=== PATIENT | male | born 1945 | race Caucasian/White ===

== ENCOUNTER 2018-01-08 17:48 | Emergency (ER) | payer OTHER ==
[2018-01-08 18:00] VITALS: RESP 16; TEMP 97.9
--- NOTE | 2018-01-08 18:32 | EDPHY ---
H & P Time Seen by Provider: 01/08/18 18:22 HPI/ROS: CHIEF COMPLAINT: Right middle digit laceration HISTORY OF PRESENT ILLNESS: 72-year-old male history of CVA on daily Plavix, up -to-date tetanus, was using a snuff grinder and sustained accidental injury to his right middle digit at the PIP joint dorsal aspect. Able to extend against resistance with no deficits. Occurred shortly prior to arrival. Was accidental. PHYSICAL EXAM (Prior to examination, patient consented to physical exam, hands were washed and my usual and customary physical exam procedures followed) 1) GENERAL: Well-developed, well-nourished, alert and oriented. Appears to be in no acute distress. 2) HEAD: Normocephalic 3) HEENT: sclera anicteric 4) LUNGS: Breathing comfortably. 5) SKIN: Right middle digit dorsal aspect PIP joint 3 cm irregular laceration. 6) MUSCULOSKELETAL: Able to hold extension at the MCP PIP D IP against resistance with no deficits. He is noted to have an extensor tendon laceration on exam. 7) NEUROLOGIC: Full sensation two-point discrimination intact distally. Smoking Status: Former smoker Constitutional: Initial Vital Signs Temperature (C) 36.6 C 01/08/18 17:57 Heart Rate 75 01/08/18 17:57 Respiratory Rate 16 01/08/18 17:57 Blood Pressure 129/71 H 01/08/18 17:57 O2 Sat (%) 95 01/08/18 17:57 O2 Delivery Mode Room Air Allergies/Adverse Reactions: No Known Allergies Allergy (Verified 01/08/18 17:56) Home Medications: Medication Instructions Recorded Aspirin 81mg 02/09/10 CRESTOR 02/09/10 Aricept 01/08/18 Cephalexin [Keflex] 500 mg PO TID 7 Days cap 01/08/18 Plavix 01/08/18 MDM/Departure - MDM Imaging Results: Imaging Impressions Finger X-Ray 01/08/18 18:17 Impression: Degenerative/posttraumatic changes as above, with otherwise negative radiographs of the right third finger. Images reviewed myself Procedures: Procedure: Laceration repair. I explained the indications, risks and benefits for both laceration repair and anesthetic administration. Verbal consent was obtained from the patient . The laceration on the right middle digit was anesthetized using 0.5% bupivicaine without epinephrine digital nerve block. After anesthetic administered the patient was observed for a period of time and had no apparent adverse effects. The wound was cleaned, prepped, draped in normal sterile fashion and explored to its base. No foreign body seen, no foreign bodies palpated. Extensor tendon laceration noted. The skin is closed with 5 simple interrupted 5 O Ethilon sutures.. The wound repair was complex. The procedure was performed by myself. Patient has been informed that scarring will occur, although efforts have been made to minimize this. Procedure: Splint A finger splint in extension was applied by ER alarm field technician. After application of the splint I returned and re-examined the patient. The splint was adequately immobilizing the joint and distal to the splint the patient's circulation and sensation were intact. Patient shows no signs of compartment syndrome. Was given orthopedic precautions. ED Course/Re-evaluation: Patient is noted have extensor tendon laceration on exam. The patient would like to follow up with Dr. Gustavo Villavicencio. I consulted with PAUL Hargrove with Dr Villavicencio at 7:29 who agrees with plan of wound closure irrigation follow up in office on Saturday (today is Saturday). Discussed this with the patient he is comfortable with this plan. Care of patient under supervision ofsecondary supervising physician Dr Aguilar . - Depart Disposition: Home, Routine, Self-Care Clinical Impression: Laceration of right middle finger Qualifiers: Encounter type: initial encounter Damage to nail status: with damage Foreign body presence: without foreign body Qualified Code(s): S61.312A - Laceration without foreign body of right middle finger with damage to nail, initial encounter Condition: Good Instructions: Laceration (ED) Additional Instructions: Return to the ER if you develop redness, swelling, discharge, warmth to the wound, red streaks going up your arm, or any other symptoms that concern you. Prescriptions: Cephalexin [Keflex] 500 mg PO TID 7 Days cap Referrals: Konstantin Villavicencio MD [Medical Doctor] - 01/10/18 (Dr. Villavicencio would like to see you in the office on Saturday. Call the office tomorrow morning to schedule this appointment)
[2018-01-08] MEDS ORDERED: CEPHALEXIN 500 MG CAP PO ONE (19:32)
[2018-01-08 19:42] VITALS: BP 118/65; PULSE 71; O2SAT 97
== END 2018-01-08 19:41 | disposition home or self-care (01) ==
PROC: 0HQFXZZ Repair Right Hand Skin, External Approach (ICD-10-PCS; principal; 2018-01-08)
DX: S61.312A Laceration without foreign body of right middle finger with damage to nail, initial encounter (principal); Z87.891 Personal history of nicotine dependence; Z79.82 Long term (current) use of aspirin; Z86.73 Personal history of transient ischemic attack (TIA), and cerebral infarction without residual deficits; W29.0XXA Contact with powered kitchen appliance, initial encounter
CPT/HCPCS: 12002; 73140; 99283; L3925